=== PATIENT | female | born 1955 | race Caucasian/White ===

== ENCOUNTER 2016-08-08 07:57 | Day surgery (SDC) | payer MEDICARE, OTHER ==
[~2016-08-08 07:57] MED LIST: PREMYELOGRAM MEDICATION REVIEW 1 EACH MISC PO ONE
[2016-08-08 08:30] VITALS: TEMP 98.3
[2016-08-08] MEDS ORDERED: DIAZEPAM 5 MG TAB PO STA (08:33)
--- NOTE | 2016-08-08 13:35 | CT ---
EXAMINATION TYPE: CT lumbar myelogram DATE OF EXAM: 08/08/2016 10:36 AM COMPARISON: Correlation myelogram injection same day HISTORY: 61-year-old female with lumbar radiculopathy. TECHNIQUE: Contiguous axial scanning of the lumbar spine performed after intrathecal administration o f contrast material. Refer to myelogram injection of the same day. Coronal/sagittal reconstructions p erformed. CT DLP: 1018 mGycm Automated exposure control for dose reduction was used. FINDINGS: There are 6 lumbar type vertebral bodies. There is a mild degenerated S-shaped scoliotic curvature of the lumbar spine. Bilateral spinal stimulator array present. On the right, the leads extend to overlie the left paraspi nal musculature opposite the L4 level. The second lead extends deep to the right paraspinal musculatu re to the 12th costovertebral junction on the right. On the left, leads enter the T12-L1 interlaminar space and extend up beyond the [id number]. Vertebral body heights are preserved. There is hypertrophic facet arthropathy particularly in the mid to lower lumbar spine. Moderate to advanced disc/endplate degenerative changes especially from L3 through L6 levels with dis c interspace narrowing, endplate irregularity and sclerosis and vacuum phenomenon. Conus medullaris is at the L1-L2 level. There is trace grade 1 retrolisthesis at L1-L2, L2-L3, L3-L4, and L4-L5. Grade 1 anterolisthesis at L 5-L6. At T12-L1, there is mild diffuse disc bulge without significant spinal canal or neuroforaminal stenos is. At L1-L2, mild disc bulge without significant spinal canal or neuroforaminal stenosis. At L2-L3, there is mild bulging disc and some prominent dorsal epidural fat. Changes mildly impressed onto the thecal sac but do not cause any spinal canal stenosis. There is minimal inferior neural for aminal narrowing on the left. At L3-L4, there is diffuse disc bulge and prominent dorsal epidural fat. Changes result in mild pablo ening of the thecal sac. Along with disc osteophyte complex, there is moderate left neuroforaminal st enosis. At L4-L5, there is diffuse disc bulge and facet degenerative change. Changes of both mild bilateral n euroforaminal stenoses and mild flattening of the thecal sac. At L5-L6, there is no further progression of the contrast column. There appears to be a large disc bu lge along with facet arthropathy. Changes result in moderate to severe right and pyym-lv-[id number] lef t neuroforaminal stenosis. There is likely abutment of some of the cauda equina nerve roots from the disc bulge. At L6-S1, facet arthropathy contribute to mild narrowing of the right neuroforamen. No spinal canal s tenosis. No prevertebral or paravertebral soft tissue abnormality seen. There is a tiny nonobstructive 2 mm ca lculus in the lower pole left kidney. IMPRESSION: 1. Degenerated slight S-shaped scoliosis of the lumbar spine. 2. 6 lumbar type vertebral bodies are noted. 3. Multilevel spondylotic change with hypertrophic facet arthropathy greatest in the mid to lower lum bar spine. There are degenerative grade 1 spondylolistheses from L1 through L6 levels. 4. Disc/endplate degenerative change is moderate to advanced from L3 through L6 levels. There is mild flattening of the spinal canal at L3-L4 and L4-L5 without kaur canal compromise. 5. There is stoppage of the contrast column at L5-L6. Uncertain if this is due to a large disc hernia tion or another process such as epidural lipomatosis. 6. Disc osteophyte complex along with facet arthropathy at L5-L6 contributes to a moderate to severe right and otyb-jv-bhelqitd left neuroforaminal stenosis. 7. Additional moderate left neuroforaminal stenosis at L3-L4.
[2016-08-08 13:55] VITALS: PULSE 75
[2016-08-08 14:41] VITALS: BP 124/72; RESP 18
--- NOTE | 2016-08-08 23:15 | FL ---
EXAMINATION TYPE: FL myelogram lumbosacral DATE OF EXAM: 08/08/2016 10:25 AM COMPARISON: NONE HISTORY: 61-year-old female with low back pain, lumbar radiculopathy. History of MS. FINDINGS: AP and lateral view was obtained and shows to generator devices with a spinal stimulator leads, 2 wit hin the paraspinal region and additional to ascending within the lower thoracic spinal canal. There i s a degenerated dextroconvex scoliotic curvature with moderate multilevel endplate spondylosis and hy pertrophic facet arthropathy throughout. Vertebral body heights are preserved. TECHNIQUE: Informed consent was obtained and all the patient's questions were answered. The L3-L4 level was loc alized under fluoroscopy. Standard sterile technique was utilized as well as appropriate local anest hesia 1% lidocaine. A 5 inch 22-gauge spinal needle was introduced into the thecal sac under fluoroscopic guidance and 10 mL's of Omni 240 was injected. The patient tolerated the procedure well and left the department in stable condition. CT myelography is to follow. IMPRESSION: Successful myelogram injection of the lumbar spine for CT.
== END 2016-08-08 14:30 | disposition home or self-care (01) ==
LOC: RADPROMAIN 07:57
PROVIDERS: ATTEND Nurse Practitioner Acute Care
DX: M51.16 Intervertebral disc disorders with radiculopathy, lumbar region (principal); M51.15 Intervertebral disc disorders with radiculopathy, thoracolumbar region; M46.96 Unspecified inflammatory spondylopathy, lumbar region; M46.97 Unspecified inflammatory spondylopathy, lumbosacral region; M41.9 Scoliosis, unspecified; M43.16 Spondylolisthesis, lumbar region; M25.78 Osteophyte, vertebrae; M48.06 Spinal stenosis, lumbar region
CPT/HCPCS: 62304; 72132; J2001; Q9966; 62284

== ENCOUNTER 2016-09-02 03:58 | Emergency (ER) | payer MEDICARE, OTHER ==
[2016-09-02] MEDS ORDERED: cloNIDine 0.3 MG/24HR PATCH 1 PATCH PATCH TRANSDERM STA (04:18)
[2016-09-02] MEDS ORDERED: HYDROmorphone 2 MG/ML 1 ML SYRINGE IM STA (04:18)
[2016-09-02] MEDS ORDERED: DIAZEPAM 5 MG TAB PO STA (04:18)
[2016-09-02] MEDS ORDERED: ONDANSETRON ODT 4 MG TAB PO STA (04:18)
--- NOTE | 2016-09-02 04:28 | ED ---
General Adult HPI - General Chief complaint: Recheck/Abnormal Lab/Rx Stated complaint: Withdrawl symptoms Time Seen by Provider: 09/02/16 04:00 Source: patient, RN notes reviewed, old records reviewed Mode of arrival: ambulatory Limitations: no limitations - History of Present Illness Initial comments: This is a 7-year-old female ER for evaluation. This patient presented for evaluation of withdrawal, opiate withdrawal. Patient takes upon off release, patient states she's been out of medication for 3 days, unable to get in to see family doctor she does have prescription. Patient States She Has Gone through Withdrawal before and She Has Not Improved Again. Patient That She Has Prescription at This Time She Hasn't No Other Complaints. No Chest Pain No Shortness of Breath No Diarrhea Abdominal Pain or Nausea Vomiting - Related Data Home Medications Medication Instructions Recorded Confirmed ALPRAZolam [ALPRAZolam XR] 0.5 mg PO DAILY 07/25/16 09/02/16 Amitriptyline HCl [Elavil] 25 mg PO HS 07/25/16 09/02/16 Aspirin [Adult Low Dose Aspirin EC] 81 mg PO DAILY 07/25/16 09/02/16 Atorvastatin [Lipitor] 10 mg PO DAILY 07/25/16 09/02/16 Baclofen [Lioresal] 10 mg PO TID 07/25/16 09/02/16 Celecoxib [CeleBREX] 200 mg PO DAILY 07/25/16 09/02/16 Cholecalciferol [Vitamin D3] 1,000 unit PO DAILY 07/25/16 09/02/16 Cyanocobalamin (Vitamin B-12) 2,500 mcg PO DAILY 07/25/16 09/02/16 [Vitamin B12] DULoxetine HCL [Cymbalta] 60 mg PO DAILY 07/25/16 09/02/16 Fingolimod HCl [Gilenya] 0.5 mg PO DAILY 07/25/16 09/02/16 Gabapentin [Neurontin] 300 mg PO DAILY 07/25/16 09/02/16 HYDROcodone/APAP 7.5-325MG [[place] 1 tab PO Q4H PRN 07/25/16 09/02/16 7.5-325] Multivitamin/Iron/Folic Acid 1 each PO DAILY 07/25/16 09/02/16 [Centrum Complete Multivit Tab] OXcarbazepine [Trileptal] 300 mg PO BID 07/25/16 09/02/16 Omeprazole [PriLOSEC] 20 mg PO AC-BID 07/25/16 09/02/16 Oxymorphone HCl [Opana ER] 40 mg PO Q12HR 07/25/16 09/02/16 Allergies Allergy/AdvReac Type Severity Reaction Status Date / Time Sulfa (Sulfonamide Allergy Rash/Hives Verified 09/02/16 04:11 Antibiotics) Review of Systems ROS Statement: Those systems with pertinent positive or pertinent negative responses have been documented in the HPI. ROS Other: All systems not noted in ROS Statement are negative. Past Medical History Past Medical History: Hyperlipidemia Additional Past Medical History / Comment(s): MS, Fibromyaglia, chronic back pain, neuropathy bilateral arms, chronic headaches, carpal tunnel History of Any Multi-Drug Resistant Organisms: None Reported Past Surgical History: Appendectomy, Hysterectomy, Tonsillectomy Additional Past Surgical History / Comment(s): breast lumpectomy, nerve stimultor insertion bilaterally, knee scope Past Anesthesia/Blood Transfusion Reactions: No Reported Reaction Past Psychological History: Anxiety, Bipolar Smoking Status: Current every day smoker Past Alcohol Use History: None Reported Past Drug Use History: None Reported General Exam Limitations: no limitations General appearance: alert, in no apparent distress, anxious Head exam: Present: atraumatic, normocephalic, normal inspection Eye exam: Present: normal appearance, PERRL, EOMI. Absent: scleral icterus, conjunctival injection, periorbital swelling ENT exam: Present: normal exam, mucous membranes moist Neck exam: Present: normal inspection. Absent: tenderness, meningismus, lymphadenopathy Respiratory exam: Present: normal lung sounds bilaterally. Absent: respiratory distress, wheezes, rales, rhonchi, stridor Cardiovascular Exam: Present: regular rate, normal rhythm, normal heart sounds. Absent: systolic murmur, diastolic murmur, rubs, gallop, clicks GI/Abdominal exam: Present: soft, normal bowel sounds. Absent: distended, tenderness, guarding, rebound, rigid Extremities exam: Present: normal inspection, full ROM, normal capillary refill. Absent: tenderness, pedal edema, joint swelling, calf tenderness Back exam: Present: normal inspection Neurological exam: Present: alert, oriented X3, CN II-XII intact Psychiatric exam: Present: normal affect, normal mood Skin exam: Present: warm, dry, intact, normal color. Absent: rash Course Vital Signs 09/02/16 04:07 Temperature 97.8 F Pulse Rate 80 Respiratory 20 Rate Blood Pressure 149/91 O2 Sat by Pulse 97 Oximetry - Reevaluation(s) Reevaluation #1: 09/02/16 04:28 Patient's symptoms are improved Medical Decision Making - Medical Decision Making 61 female here for evaluation. Patient does say for evaluation of opiate withdrawal, symptoms of this time resolved and patient can be discharged home Disposition Clinical Impression: Opioid withdrawal Disposition: HOME SELF-CARE Condition: Good Instructions: Opioid Withdrawal (ED) Referrals: Thomas Barrow MD [Primary Care Provider] - 1-2 days
[2016-09-02 05:17] VITALS: BP 148/84; PULSE 75; RESP 16; TEMP 98.7
== END 2016-09-02 05:48 | disposition home or self-care (01) ==
LOC: EC 03:58
DX: F11.23 Opioid dependence with withdrawal (principal); T40.2X5A Adverse effect of other opioids, initial encounter; E78.5 Hyperlipidemia, unspecified; G35 Multiple sclerosis; G89.29 Other chronic pain; M54.9 Dorsalgia, unspecified; G56.93 Unspecified mononeuropathy of bilateral upper limbs; F41.9 Anxiety disorder, unspecified; F31.9 Bipolar disorder, unspecified; F17.200 Nicotine dependence, unspecified, uncomplicated; Z79.899 Other long term (current) drug therapy; Z88.2 Allergy status to sulfonamides
CPT/HCPCS: 99283; 96372; J1170

== ENCOUNTER 2016-09-02 21:17 | Emergency (ER) | payer MEDICARE, OTHER ==
[2016-09-02 21:30] VITALS: BP 131/67; PULSE 78; RESP 20; TEMP 98.7
[2016-09-02] MEDS ORDERED: HYDROmorphone 2 MG/ML 1 ML SYRINGE IM STA (22:20)
[2016-09-02] MEDS ORDERED: DIAZEPAM 5 MG/ML 2 ML SYRINGE IM ONE (22:35)
[2016-09-02] MEDS ORDERED: DIAZEPAM 5 MG TAB PO STA (22:38)
--- NOTE | 2016-09-02 22:40 | ED ---
General Adult HPI - General Chief complaint: Recheck/Abnormal Lab/Rx Stated complaint: Poss. Withdraws Time Seen by Provider: 09/02/16 21:48 Source: patient, RN notes reviewed, old records reviewed Mode of arrival: ambulatory Limitations: no limitations - History of Present Illness Initial comments: This is a 61-year-old female ER for reevaluation regarding opiate withdrawal. Patient states symptoms started last night which is in the emergency room and is coming back for same today. She does have pain control appointment tomorrow and will be back on her pain medication. Patient states was a mixup with insurance. At this time she does admit to tremors and anxiety - Related Data Home Medications Medication Instructions Recorded Confirmed ALPRAZolam [ALPRAZolam XR] 0.5 mg PO DAILY 07/25/16 09/02/16 Amitriptyline HCl [Elavil] 25 mg PO HS 07/25/16 09/02/16 Aspirin [Adult Low Dose Aspirin EC] 81 mg PO DAILY 07/25/16 09/02/16 Atorvastatin [Lipitor] 10 mg PO DAILY 07/25/16 09/02/16 Baclofen [Lioresal] 10 mg PO TID 07/25/16 09/02/16 Celecoxib [CeleBREX] 200 mg PO DAILY 07/25/16 09/02/16 Cholecalciferol [Vitamin D3] 1,000 unit PO DAILY 07/25/16 09/02/16 Cyanocobalamin (Vitamin B-12) 2,500 mcg PO DAILY 07/25/16 09/02/16 [Vitamin B12] DULoxetine HCL [Cymbalta] 60 mg PO DAILY 07/25/16 09/02/16 Fingolimod HCl [Gilenya] 0.5 mg PO DAILY 07/25/16 09/02/16 Gabapentin [Neurontin] 300 mg PO DAILY 07/25/16 09/02/16 HYDROcodone/APAP 7.5-325MG [[place] 1 tab PO Q4H PRN 07/25/16 09/02/16 7.5-325] Multivitamin/Iron/Folic Acid 1 each PO DAILY 07/25/16 09/02/16 [Centrum Complete Multivit Tab] OXcarbazepine [Trileptal] 300 mg PO BID 07/25/16 09/02/16 Omeprazole [PriLOSEC] 20 mg PO AC-BID 07/25/16 09/02/16 Oxymorphone HCl [Opana ER] 40 mg PO Q12HR 07/25/16 09/02/16 Allergies Allergy/AdvReac Type Severity Reaction Status Date / Time Sulfa (Sulfonamide Allergy Rash/Hives Verified 09/02/16 21:30 Antibiotics) Review of Systems ROS Statement: Those systems with pertinent positive or pertinent negative responses have been documented in the HPI. ROS Other: All systems not noted in ROS Statement are negative. Past Medical History Past Medical History: Hyperlipidemia Additional Past Medical History / Comment(s): MS, Fibromyaglia, chronic back pain, neuropathy bilateral arms, chronic headaches, carpal tunnel History of Any Multi-Drug Resistant Organisms: None Reported Past Surgical History: Appendectomy, Hysterectomy, Tonsillectomy Additional Past Surgical History / Comment(s): breast lumpectomy, nerve stimultor insertion bilaterally, knee scope Past Anesthesia/Blood Transfusion Reactions: No Reported Reaction Past Psychological History: Anxiety, Bipolar Smoking Status: Current every day smoker Past Alcohol Use History: None Reported Past Drug Use History: None Reported General Exam Limitations: no limitations General appearance: alert, in no apparent distress, anxious Head exam: Present: atraumatic, normocephalic, normal inspection Eye exam: Present: normal appearance, PERRL, EOMI. Absent: scleral icterus, conjunctival injection, periorbital swelling ENT exam: Present: normal exam, mucous membranes moist Neck exam: Present: normal inspection. Absent: tenderness, meningismus, lymphadenopathy Respiratory exam: Present: normal lung sounds bilaterally. Absent: respiratory distress, wheezes, rales, rhonchi, stridor Cardiovascular Exam: Present: regular rate, normal rhythm, normal heart sounds. Absent: systolic murmur, diastolic murmur, rubs, gallop, clicks GI/Abdominal exam: Present: soft, normal bowel sounds. Absent: distended, tenderness, guarding, rebound, rigid Extremities exam: Present: normal inspection, full ROM, normal capillary refill. Absent: tenderness, pedal edema, joint swelling, calf tenderness Back exam: Present: normal inspection Neurological exam: Present: alert, oriented X3, CN II-XII intact Psychiatric exam: Present: normal affect, normal mood Skin exam: Present: warm, dry, intact, normal color. Absent: rash Course Vital Signs 09/02/16 21:27 Temperature 98.7 F Pulse Rate 78 Respiratory 20 Rate Blood Pressure 131/67 O2 Sat by Pulse 97 Oximetry - Reevaluation(s) Reevaluation #1: 09/02/16 22:40 Patient feeling better, ER visit from yesterday revisited Medical Decision Making - Medical Decision Making 61 female ER with positive opiate withdrawal. Patient's symptoms are improving can be discharged home Disposition Clinical Impression: Opioid withdrawal Disposition: HOME SELF-CARE Condition: Good Instructions: Opioid Withdrawal (ED) Referrals: Dimitri Barrow MD [Primary Care Provider] - 1-2 days
== END 2016-09-02 22:46 | disposition home or self-care (01) ==
LOC: EC 21:17
DX: F11.23 Opioid dependence with withdrawal (principal); E78.5 Hyperlipidemia, unspecified; G35 Multiple sclerosis; G89.29 Other chronic pain; M54.9 Dorsalgia, unspecified; G56.93 Unspecified mononeuropathy of bilateral upper limbs; F31.9 Bipolar disorder, unspecified; F17.200 Nicotine dependence, unspecified, uncomplicated; Z79.891 Long term (current) use of opiate analgesic; Z79.899 Other long term (current) drug therapy; Z79.82 Long term (current) use of aspirin; F41.9 Anxiety disorder, unspecified; Z88.2 Allergy status to sulfonamides
CPT/HCPCS: 99283 ×2; 96372 ×2; J1170

== ENCOUNTER → 2018-01-17 | Outpatient (CLI) | payer MEDICARE, OTHER ==
[2018-01-17 12:31] LABS: Blood Urea Nitrogen 15 mg/dL (7-17)
--- NOTE | 2018-01-17 14:25 | MR ---
EXAMINATION TYPE: MR brain/cspine wo/w DATE OF EXAM: 01/17/2018 COMPARISON: MRI brain July 17, 2011 HISTORY: Cervicalgia and multiple sclerosis per order. Headache and neck pain for over a year causing pain or weakness into left arm and fingers per patient. TECHNIQUE: Multiplanar, multisequence images of the cervical spine, brain, and brainstem are all performed witho ut and with IV contrast, utilizing 7 mL intravenous Gadavist gadolinium contrast is administered intr avenously. Demyelinating disease protocol with additional Sagittal Flair sequence performed of the b rain and brainstem and PD sagittal sequence of cervical spine both acquired. FINDINGS: BRAIN: T2 Lesions Present : Yes Approximate Number of Lesions: Approximately 15-20 Locations Identified : Scattered but some periventricular lesions are strongly suspicious, for refere nce sagittal image 12 elongated ovoid lesions Size of Reference Lesion(s): 1. Confluent ovoid lesion measuring 1.4 x 1.2 x 1.5 cm axial image 17 and sagittal image [address] able from prior Enhancing Lesion(s) Present: No T1 Hypointense Lesion(s) Present: Yes Change from Prior: Increase in number Diffusion weighted images demonstrate no evidence of a recent infarct or other diffusion abnormality. There is no worrisome extra-axial fluid collection. The ventricular system and cisternal spaces ar e normal in size and appearance. The brain volume is age appropriate. Midline structures demonstrate normal morphology. The craniocervical junction appears within normal limits. Post contrast images demonstrate no abnormal enhancement. The dural venous sinuses appear pa tent. The visualized sinuses are clear and the globes are intact. IMPRESSION: Fairly moderate white matter changes felt to be on basis of known multiple sclerosis rede monstrated with some progression from 2011 MRI. No enhancing lesions are evident currently. FINDINGS: Coronal images show dextroconvex scoliotic curvature centered near cervicothoracic junction . Sagittal images of the cervical spine show the craniocervical junction to appear within normal limi ts. The cervical and upper thoracic spinal cord is normal in course, caliber, and signal. Vertebral alignment is straightening with slight grade 1 retrolisthesis of C5 on C6. There is mild to moderate disc space narrowing with mild anterior spurring C5-C6 level. The vertebral body and intravertebral disk heights otherwise are normal. Small posterior disc herniations are effacing anterior thecal sac at C4-C5 and C6-C7 levels with slightly more prominent posterior disc herniation C5-C6 level effacin g anterior thecal sac that has some spurring on sagittal images. The bone marrow signal intensity is within normal limits. No suspicious enhancement is noted. Axial images show the C2-C3 level to appear within normal limits. Axial images at C3-C4 level show uncovertebral facet degenerative changes bilaterally causing moderat e right and mild left-sided neural foraminal narrowing. Spinal canal is preserved. Axial images at C4-C5 level show broad-based posterior disc protrusion effacing anterior thecal sac w ith uncovertebral facet arthropathy causing mild to moderate left greater than right neural foraminal narrowing. Axial images at C5-C6 level show most prominent broad-based posterior disc protrusion and marginal sp urring effacing anterior thecal sac and causing moderate to advanced bilateral neural foraminal narro wing. Axial images at C6-C7 level shows central disc protrusion mildly effacing anterior thecal sac with le ft foraminal component causing asymmetric moderate left-sided neural foraminal narrowing. Right-sided neural foramen is patent. Axial images at C7-T1 level are felt within normal limits. IMPRESSION: No evidence of demyelinating disease involvement in the cervical spinal cord. Straighteni ng of cervical spine with multilevel degenerative changes most prominent at C5-C6 level with further details as noted in body of report..
--- NOTE | 2018-01-18 20:55 | MR ---
EXAMINATION TYPE: MR lumbar spine wo con DATE OF EXAM: 01/17/2018 COMPARISON: Correlation CT myelogram 08/08/2016 HISTORY: 62-year-old female Low back pain TECHNIQUE: Multiplanar, multisequence images of the lumbar spine were acquired. Findings: Utilizing a number convention as reported on CT myelogram 08/08/2016 with 6 lumbar type vertebral bodi es. There is interval posterior lumbar fusion and laminectomy change from L3 through L6 levels. Hypertrophic facet arthropathy upper lumbar spine with similar subtle S-shaped curvature of the lumba r spine. Conus medullaris is normal. Allowing for metal hardware artifact, no suspicious bone marrow replacement. Vertebral body heights a re maintained. At T11-T12, mild posterior disc bulge impressing onto the spinal canal without significant spinal can al or neuroforaminal stenosis. At T12-L1, no significant spinal canal or neuroforaminal stenosis. At L1-L2, there is trace grade 1 retrolisthesis with posterior disc bulge impressing on to the ventra l thecal sac. Facet degenerative change contribute to mild left neuroforaminal stenosis. No significa nt spinal canal stenosis. There is dorsal abutment of the conus at the L2 level due to a thickened ligamentum flavum. No spinal canal stenosis. At L2-L3, there is diffuse disc bulge with hypertrophic facet arthropathy, trace grade 1 retrolisthes is, diffuse disc bulge with ligamentum flavum thickening. Changes mildly narrow the spinal canal and contribute to moderate left and mild right neuroforaminal stenosis. At the fused L3-L4 level, there is dorsal decompression of the spinal canal. Metal hardware artifact limits assessment of the left-sided neuroforamen. The right neuroforamen may be only mildly narrowed. At the fused L4-L5 level, there is dorsal decompression of the spinal canal. Metal hardware artifact limits assessment of the right-sided neuroforamen. Apparent mild left-sided neural foraminal narrowin g. At the fused L5-L6 level, there is dorsal decompression of the spinal canal with grade 1 anterolisthe sis and diffuse disc bulging. There appears to be mild left and probably moderate right neuroforamina l narrowing. No spinal canal stenosis. At L6-S1, no spinal canal stenosis. There is bulging disc and facet arthropathy with mild bilateral n euroforaminal stenosis. No prevertebral paravertebral soft tissue abnormality seen. IMPRESSION: 1. Utilizing the same numbering convention reported on 08/08/2016 with 6 lumbar type vertebral bodies. 2. Interval posterior lumbar fusion from L3 through L6 levels with laminectomies. 3. There is mild spinal canal stenosis at L2-L3 secondary to disc bulge, trace grade 1 retrolisthesis , and ligamentum flavum thickening. Moderate left and mild right neural foraminal stenosis here. 4. Otherwise, there is no canal compromise seen. 5. Additional grade 1 retrolisthesis at L1-L2 bulging disc with mild left neuroforaminal stenosis. 6. At the fused levels, assessment of the left L3-L4 and right L4-L5 neuroforamen is limited due to m etal artifact. Moderate right neuroforaminal stenosis at the fused L5-L6 level.
== END | disposition home or self-care (01) ==
LOC: RADMRIMAIN 11:53
PROVIDERS: ATTEND Nurse Practitioner Acute Care
DX: M48.061 Spinal stenosis, lumbar region without neurogenic claudication (principal); M99.73 Connective tissue and disc stenosis of intervertebral foramina of lumbar region; M51.26 Other intervertebral disc displacement, lumbar region; M43.16 Spondylolisthesis, lumbar region; M47.812 Spondylosis without myelopathy or radiculopathy, cervical region; R90.82 White matter disease, unspecified; G35 Multiple sclerosis; Z98.1 Arthrodesis status; Z88.2 Allergy status to sulfonamides
CPT/HCPCS: 82565; 84520; 70553; 72148; 72156; 36415; A9581

== ENCOUNTER → 2018-07-18 | Outpatient (CLI) | payer MEDICARE, OTHER ==
[2018-07-18 14:33] LABS: Basophils % (A) 0 %; Eosinophils # (A) 0.3 k/uL (0-0.7); Eosinophils % (A) 6 %; HCT 40.8 % (34.0-46.0); HGB 12.9 gm/dL (11.4-16.0); Lymphocytes # (A) 0.5 k/uL (1.0-4.8); Lymphocytes % (A) 9 %; MCH 28.7 pg (25.0-35.0); MCHC 31.7 g/dL (31.0-37.0); MCV 90.8 fL (80.0-100.0); Mean Platelet Volume 6.6; Monocytes # (A) 0.3 k/uL (0-1.0); Monocytes % (A) 7 %; Neutrophils # (A) 3.6 k/uL (1.3-7.7); Neutrophils % (A) 75 %; Platelet Count 330 k/uL (150-450); RDW 13.3 % (11.5-15.5); WBC 4.8 k/uL (3.8-10.6)
[2018-07-18 18:49] LABS: Vitamin D 25 Hydroxy 30.1 ng/mL (30.0-100.0)
== END ==
LOC: LABWHC1 13:53
PROVIDERS: ATTEND Nurse Practitioner Acute Care
DX: E55.9 Vitamin D deficiency, unspecified (principal); R53.83 Other fatigue
CPT/HCPCS: 36415; 82306; 82607; 84207; 85025

== ENCOUNTER → 2020-07-25 | Outpatient (CLI) | payer MEDICARE, OTHER ==
[2020-07-25 15:18] LABS: Basophils % (A) 0 %; Eosinophils # (A) 0.1 k/uL (0-0.7); Eosinophils % (A) 1 %; HCT 37.8 % (34.0-46.0); HGB 12.8 gm/dL (11.4-16.0); Lymphocytes # (A) 0.8 k/uL (1.0-4.8); Lymphocytes % (A) 14 %; MCH 31.8 pg (25.0-35.0); MCHC 33.9 g/dL (31.0-37.0); Mean Platelet Volume 7.6; Monocytes # (A) 0.4 k/uL (0-1.0); Monocytes % (A) 6 %; Neutrophils # (A) 4.6 k/uL (1.3-7.7); Neutrophils % (A) 77 %; Platelet Count 262 k/uL (150-450); RBC 4.02 m/uL (3.80-5.40); RDW 12.6 % (11.5-15.5); WBC 5.9 k/uL (3.8-10.6)
[2020-07-26 04:01] LABS: Ferritin 30.1 ng/mL (10.0-291.0)
[2020-07-26 04:24] LABS: ALT 14 U/L (8-44); AST 20 U/L (13-35); African American GFR (CKD) 78.3 (60.0-200.0); Albumin/Globulin Ratio 2.15 (1.60-3.17); Alkaline Phosphatase 85 U/L (41-126); BUN/Creat Ratio 11.11 Ratio (12.00-20.00); Calcium 9.6 mg/dL (8.7-10.3); Carbon Dioxide 28.5 mmol/L (21.6-31.8); Chloride 103 mmol/L (96-109); Glucose 88 mg/dL (70-110); Iron 104 ug/dL (50-170); Non-African American GFR(CKD) 67.6 (60.0-200.0); Potassium 4.2 mmol/L (3.5-5.5); Sodium 140 mmol/L (135-145); Total Bilirubin 0.2 mg/dL (0.2-1.2); Total Iron Binding Capacity 327 ug/dL (228-460); Total Protein 6.3 g/dL (6.2-8.2)
[2020-07-26 04:42] LABS: Vitamin B12 >4000.0 pg/mL (211-911)
== END | disposition home or self-care (01) ==
LOC: LABWHC1 14:10
PROVIDERS: ATTEND Nurse Practitioner Acute Care
DX: E03.9 Hypothyroidism, unspecified (principal); E55.9 Vitamin D deficiency, unspecified; D50.9 Iron deficiency anemia, unspecified; R53.83 Other fatigue
CPT/HCPCS: 36415; 80053; 82306; 82607; 82728; 83540; 83550; 84207; 84439; 84443; 84466; 84481; 85025

== ENCOUNTER → 2024-11-18 | Outpatient (CLI) | payer MEDICARE, OTHER ==
--- NOTE | 2024-11-18 13:30 | CT ---
EXAMINATION TYPE: CT hip RT wo con DATE OF EXAM: 11/18/2024 COMPARISON: None CLINICAL INDICATION: Female, 69 years old with history of M87.9 OSTEONECROSIS, UNSPECIFIED; PHH, righ t hip pain CT DLP: 535.1 mGycm Automated exposure control for dose reduction was used. FINDINGS: There is a right total hip prosthesis which appears to be in satisfactory position. There is no fract ure or dislocation. There is no periprosthetic ostiolysis. There is mild heterotopic bone formation laterally. The visualized right hemipelvis appears to be int act with no fracture or focal intraosseous abnormality. IMPRESSION: Satisfactory appearing right hip prosthesis as described above. IMPRESSION: [facility] [place], , 11/18/2024 1:28 PM
== END | disposition home or self-care (01) ==
LOC: RADCTMAIN 12:24
PROVIDERS: ATTEND Psychiatry & Neurology Neurology
DX: M87.9 Osteonecrosis, unspecified (principal); Z96.641 Presence of right artificial hip joint